=== PATIENT | male | born 2000 | race Caucasian/White ===

== ENCOUNTER 2018-08-05 01:22 | Emergency (ER) | payer OTHER ==
[2018-08-05] MEDS ORDERED: NS 0.9% 1000 ML** 1,000 ML IV ONE (02:09)
[2018-08-05] MEDS ORDERED: Ketorolac INJ* 30 MG/ML 1 ML VIAL IV PUSH ONE (02:09)
--- NOTE | 2018-08-05 02:13 | ED ---
Abdominal Pain/Male - HPI Summary HPI Summary: This patient is a 18 year old M presenting to [facility] with a chief complaint of LLQ abd pain since 20:00. The patient notes that the pain radiates to his left testicle and groin. The patient rates the pain 6/10 in severity. Symptoms aggravated by nothing. Symptoms alleviated by nothing. Patient reports sore throat and MIJARES since this morning. Patient denies dysuria, back pain, vomiting, or fever. Patient denies exercising today. Patient notes that his last bowel movement was 20:00. - History of Current Complaint Chief Complaint: EDAbdPain Stated Complaint: "TESTICLE AND ABD PAIN" PER PT Time Seen by Provider: 08/05/18 01:50 Hx Obtained From: Patient Onset/Duration: Gradual Onset, Lasting Hours, Still Present Timing: Constant, Lasting Hours Severity Initially: Mild Severity Currently: Mild Pain Intensity: 6 Pain Scale Used: 0-10 Numeric Location: Discrete At: LLQ Radiates: Yes Radiates to: Other - groin, left testicle Aggravating Factor(s): Nothing Alleviating Factor(s): Nothing Associated Signs And Symptoms: Negative: Fever, Back Pain, Urinary Symptoms, Vomiting - Allergies/Home Medications Allergies/Adverse Reactions: Allergies Allergy/AdvReac Type Severity Reaction Status Date / Time azithromycin Allergy Unknown Verified 08/05/18 01:52 Reaction Details PMH/Surg Hx/FS Hx/Imm Hx Endocrine/Hematology History: Denies: Hx Diabetes Opthamlomology History: Denies: Hx Legally Blind EENT History: Denies: Hx Deafness - Surgical History Surgery Procedure, Year, and Place: none - Immunization History Date of Tetanus Vaccine: assumed utd Date of Influenza Vaccine: fall 2017 Infectious Disease History: No Infectious Disease History: Denies: Traveled Outside the [place] in Last 30 Days - Family History Known Family History: Negative: Diabetes Family History: Noncontributory - Social History Alcohol Use: Weekly Substance Use Type: Reports: None Smoking Status (MU): Never Smoked Tobacco Review of Systems Negative: Fever Positive: Abdominal Pain - LLQ pain. Negative: Vomiting Positive: pain - left testicle pain, groin pain. Negative: dysuria Musculoskeletal: Negative - negative back pain Negative: Rash All Other Systems Reviewed And Are Negative: Yes Physical Exam - Summary Physical Exam Summary: VITAL SIGNS: Reviewed. GENERAL: Patient is a well-developed and nourished MALE who is lying comfortable in the stretcher. Patient is not in any acute respiratory distress. HEAD AND FACE: No signs of trauma. No ecchymosis, hematomas or skull depressions. No sinus tenderness. EYES: PERRLA, EOMI x 2, No injected conjunctiva, no nystagmus. EARS: Hearing grossly intact. Ear canals and tympanic membranes are within normal limits. MOUTH: Oropharynx within normal limits. NECK: Supple, trachea is midline, no adenopathy, no JVD, no carotid bruit, no c- spine tenderness, neck with full ROM. CHEST: Symmetric, no tenderness at palpation LUNGS: Clear to auscultation bilaterally. No wheezing or crackles. CVS: Regular rate and rhythm, S1 and S2 present, no murmurs or gallops appreciated. ABDOMEN: Soft, mild LLQ tenderness. No signs of distention. No rebound no guarding, and no masses palpated. Bowel sounds are normal. EXTREMITIES: FROM in all major joints, no edema, no cyanosis or clubbing. NEURO: Alert and oriented x 3. No acute neurological deficits. Speech is normal and follows commands. SKIN: Dry and warm TESTICULAR EXAM: left testicular tenderness without swelling, redness or elevation Triage Information Reviewed: Yes Vital Signs On Initial Exam: Initial Vitals Temp Pulse Resp BP Pulse Ox 97.3 F 66 16 150/78 98 08/05/18 01:23 08/05/18 01:23 08/05/18 01:23 08/05/18 01:23 08/05/18 01:23 Vital Signs Reviewed: Yes Diagnostics - Vital Signs Vital Signs Temp Pulse Resp BP Pulse Ox 08/05/18 01:23 97.3 F 66 16 150/78 98 - Laboratory Result Diagrams: 08/05/18 02:43 08/05/18 02:43 Lab Statement: Any lab studies that have been ordered have been reviewed, and results considered in the medical decision making process. - CT CT Abd/Pelvis CT Interpretation Completed By: Radiologist Summary of CT Findings: IMPRESSION: No CT findings to correlate with patient's symptomatology. Specifically no. obstructing renal or ureteral calculi. Dr. Eid has reviewed this report. Abdominal Pain Male Course/Dx - Course Course Of Treatment: This patient is a 18 year old M presenting to [facility] with a chief complaint of LLQ abd pain since 20:00. The patient notes that the pain radiates to his left testicle and groin. The patient rates the pain 6/10 in severity. Symptoms aggravated by nothing. Symptoms alleviated by nothing. Patient reports sore throat and MIJARES since this morning. Patient denies dysuria, back pain, vomiting, or fever. Patient denies exercising today. Patient notes that his last bowel movement was 20:00. Physical exam reveals LLQ tenderness and left testicular tenderness without swelling, redness, or elevation. CT Abd/ Pelvis reveals, per radiologist, No CT findings to correlate with patient's symptomatology. Specifically no obstructing renal or ureteral calculi. ED physician has reviewed this radiology report. Bloodwork and UA obtained. In the ED course the patient was given Toradol and IV fluids. Dx musculoskeletal pain. Patient will be discharged home with follow up from PCP. The patient is agreeable with this plan. - Diagnoses Provider Diagnoses: Musculoskeletal pain Discharge - Sign-Out/Discharge Documenting (check all that apply): Patient Departure - discharge home Patient Received Moderate/Deep Sedation with Procedure: No - Discharge Plan Condition: Stable Disposition: HOME Patient Education Materials: Musculoskeletal Pain (ED) Referrals: Estephanie Owen [facility]TER [Primary Care Provider] - Additional Instructions: Follow up with your primary care physician in 1-2 days. Return to the emergency department with any new or worsening symptoms. - Attestation Statements Document Initiated by Niyah: Yes Documenting Scribe: Vidhya Irizarry Provider For Whom Niyah is Documenting (Include Credential): Bianca Eid MD Scribe Attestation: Vidhya Herrera, scribed for Bianca Eid MD on 08/05/18 at 0326. Status of Scribe Document: Ready
[2018-08-05 02:52] LABS: ABS Basophils 0 10^3/ul (0-0.2); ABS Eosinophils 0.1 10^3/ul (0-0.6); ABS Lymphocytes 1.4 10^3/ul (1.0-4.8); ABS Monocytes 0.9 10^3/ul (0-0.8); ABS Neutrophils 4.9 10^3/ul (1.5-7.7); ABS Nucleated RBC 0 10^3/ul; Eosinophil % 1.8 %; Hematocrit 38 % (42-52); Hemoglobin 12.4 g/dl (14.0-18.0); Lymphocyte % 19.7 %; Mean Corpuscular HGB Conc 33 g/dl (31-36); Mean Corpuscular Hemoglobin 28 pg (27-31); Mean Corpuscular Volume 85 fL (80-94); Mean Platelet Volume 8.7 fL (7.4-10.4); Nucleated Red Blood Cells % 0.1; Platelet Count 171 10^3/ul (150-450); Red Blood Count 4.41 10^6/ul (4.00-5.40); Red Cell Distribution Width 13 % (10.5-15); White Blood Count 7.3 10^3/ul (3.5-10.8)
[2018-08-05 03:06] LABS: Albumin 4.3 g/dL (3.2-5.2); Albumin/Globulin Ratio 1.5 (1-3); BUN/Creatinine Ratio 16.7 (8-20); C Reactive Protein 7.87 mg/L (<8.01); Calcium 9.1 mg/dL (8.6-10.3); EGFR African American 153.5 (>60); EGFR Non-African American 126.9 (>60); Globulin 2.8 g/dL (2-4); Magnesium 1.8 mg/dL (1.9-2.7); Potassium 3.5 mmol/L (3.5-5.0); Total Bilirubin 0.3 mg/dL (0.2-1.0); Total Protein 7.1 g/dL (6.4-8.9)
[2018-08-05 03:18] LABS: Urine Appearance Clear; Urine Bacteria Absent (Absent); Urine Bilirubin Negative (Negative); Urine Blood 1+ (Negative); Urine Color Straw; Urine Glucose Negative (Negative); Urine Ketones Negative (Negative); Urine Nitrite Negative (Negative); Urine Protein Negative (Negative); Urine Red Blood Cell Absent (Absent); Urine Specific Gravity 1.005 (1.010-1.030); Urine Urobilinogen Negative (Negative); Urine White Blood Cell Trace(0-5/hpf) (Absent)
[2018-08-05 03:38] VITALS: BP 134/74
== END 2018-08-05 03:38 | disposition home or self-care (01) ==
LOC: ED 01:22
DX: R10.32 Left lower quadrant pain (principal); M79.18 Myalgia, other site
CPT/HCPCS: 36415; 74176; 80053; 81003; 81015; 82150; 83690; 83735; 85025; 86140; 87086; 96361; 96374; 99283; J1885